=== PATIENT | female | born 1975 | race Caucasian/White ===

== ENCOUNTER 2018-09-17 20:41 | Emergency (ER) | payer BC ==
[2018-09-17 22:13] VITALS: RESP 18
--- NOTE | 2018-09-18 00:22 | ED PDOC ---
HPI: Abdomen Time Seen by Provider: 09/18/18 00:04 Chief Complaint (Nursing): Abdominal Pain Chief Complaint (Provider): abdominal pain History Per: Patient History/Exam Limitations: no limitations Onset/Duration Of Symptoms: Days, Waxing/Waning Current Symptoms Are (Timing): Still Present Location Of Pain/Discomfort: RLQ Additional Complaint(s): 43 y/o female presents for evaluation of intermittent right lower abdominal pain x weeks, worsening today. Denies fever, nausea/vomiting, cough, congestion, chest pain, shortness of breath, palpitations, urinary symptoms, vaginal bleeding/discharge Abnormal Vaginal Bleeding: No Last Menstral Period: 09/08/18 Past Medical History Reviewed: Historical Data, Nursing Documentation, Vital Signs Vital Signs: Last Vital Signs Temp 98.4 F 09/17/18 22:10 Pulse 72 09/17/18 22:10 Resp 18 09/17/18 22:10 BP 132/76 09/17/18 22:10 Pulse Ox 99 09/17/18 22:10 - Medical History PMH: No Chronic Diseases - Surgical History Surgical History: Tonsillectomy - Family History Family History: States: No Known Family Hx - Home Medications Home Medications: Ambulatory Orders Medication Instructions Recorded Cyclobenzaprine [Cyclobenzaprine 10 mg PO BID #14 tab 08/23/14 HCl] Ibuprofen [Motrin] 600 mg PO Q8 #30 tab 08/23/14 - Allergies Allergies/Adverse Reactions: Allergies Allergy/AdvReac Type Severity Reaction Status Date / Time No Known Allergies Allergy Unverified 08/23/14 10:41 Review of Systems ROS Statement: Except As Marked, All Systems Reviewed And Found Negative Genitourinary Female: Positive for: Pelvic Pain Physical Exam - Reviewed Nursing Documentation Reviewed: Yes Vital Signs Reviewed: Yes - Physical Exam Appears: Positive for: Well, Non-toxic, No Acute Distress Head Exam: Positive for: ATRAUMATIC, NORMAL INSPECTION, NORMOCEPHALIC Skin: Positive for: Normal Color Eye Exam: Positive for: Normal appearance ENT: Positive for: Normal ENT Inspection Cardiovascular/Chest: Positive for: Regular Rate, Rhythm Respiratory: Positive for: Normal Breath Sounds Gastrointestinal/Abdominal: Positive for: Bowel Sounds, Soft, Tenderness (epigastric and RLQ tenderness; negative McBurney's. negative Weiner's). Negative for: Distended, Guarding, Rebound Extremity: Positive for: Normal ROM Neurologic/Psych: Positive for: Alert, Oriented (x3) - Laboratory Results Result Diagrams: 09/18/18 00:30 09/18/18 00:30 - ECG O2 Sat by Pulse Oximetry: 99 - Progress ED Course And Treament: -upreg -udip -cbc -cmp -urinalsys -tv u/s -IV toradol Ultrasound of the pelvis, transvaginal. Indication: Right-sided pelvic pain. Technique: Transvaginal and transabdominal ultrasound images were obtained. Findings: Uterus is normal in size measuring 8.8x5.5x7 cm. Endometrium is normal in thickness measuring 7.3 mm. Multiple nabothian cysts of the cervix with the largest measuring 1.5 cm. Normal ovaries. No evidence of ovarian torsion. Impression: Multiple nabothian cysts of the cervix with the largest measuring 1.5 cm. Otherwise, unremarkable uterus and ovaries CT ordered for further evaluation of pain CT SCAN OF THE ABDOMEN AND PELVIS WITH CONTRAST. CLINICAL HISTORY: Right lower quadrant pain. TECHNIQUE: Multiple axial and coronal CT images were obtained through the abdomen and pelvis after administration of intravenous contrast material. COMMENTS: The liver is mildly enlarged with decreased attenuation without mass or defect. There is no intra or extrahepatic biliary ductal dilatation. The spleen is normal. The gallbladder is diffusely thickened containing multiple gallstones. The pancreas is of normal contour and attenuation characteristics. There is no evidence of adrenal mass. Both kidneys demonstrate prompt and equal nephrograms. The kidneys are normal in size, shape and configuration. There is no evidence of renal or ureteral mass. No renal or ureteral calculi are identified. There is no hydroureter or h ydronephrosis. No evidence for appendicitis. There is no bowel wall thickening. No evidence for small or large bowel obstruction. There is no evidence of abdominal ascites or lymphadenopathy. There is no evidence of intrinsic or extrinsic bladder mass. There is no pelvic ascites or lymphadenopathy. Changes of pelvic congestion syndrome. Uncomplicated colonic diverticulosis. Images of the lung bases show no evidence of pleural or parenchymal mass. There are no pleural effusions. The bony structures are free of lytic or blastic lesions. IMPRESSION: Cholelithiasis. Mild diffuse thickening of the gallbladder, sonographic evaluation is suggested. Uncomplicated colonic diverticulosis. Chronic changes of pelvic congestion syndrome. Normal appendix Ultrasound of the right upper quadrant. Indication: Right-sided pain. Technique: Real-time ultrasound images were obtained. Findings: Enlarged the liver measuring 18.9 cm. Hepatic steatosis. Diffuse thickening of the gallbladder measuring 3.3 mm. Multiple gallstones are noted. Nondilated common bile duct measuring 4 mm. Unremarkable pancreas is visualized. Unremarkable IVC. Unremarkable aorta. Unremarkable right kidney. Impression: Cholelithiasis. Mild diffuse thickening of the wall of the gallbladder. This is suspicious for developing acute inflammatory pathology of the gallbladder. Hepatic steatosis. Case discussed with Dr. Gibbs technical operations vice president on-call, will come evaluate patient in ED Disposition - Clinical Impression Clinical Impression: Abdominal pain in female - Disposition Disposition Time: 06:00 Condition: IMPROVED Patient Signed Over To: Andrea Connell Handoff Comments: pending surgical eval
[2018-09-18 01:06] LABS: BASO # 0.1 K/uL (0.0-0.2); BASO % 0.6 % (0.0-2.0); EOS # 0.2 K/uL (0.0-0.7); EOS % 2.2 % (0.0-4.0); HEMOGLOBIN 11.7 g/dL (12.0-16.0); LYMPH # 3.6 K/uL (1.0-4.3); LYMPH % 35.8 % (20.0-40.0); MEAN CORPUSCULAR HEMOGLOBIN 27.8 pg (27.0-31.0); MEAN CORPUSCULAR HGB CONC 33.1 g/dL (33.0-37.0); MEAN PLATELET VOLUME 8.5 fl (7.2-11.7); MONO # 0.4 K/uL (0.0-0.8); MONO % 4.4 % (0.0-10.0); NEUT # 5.8 K/uL (1.8-7.0); RBC 4.2 Mil/uL (3.80-5.20); RED CELL DISTRIBUTION WIDTH 13.7 % (11.5-14.5); WHITE BLOOD COUNT 10.2 K/uL (4.8-10.8)
[2018-09-18 01:08] LABS: SQUAMOUS EPITHIAL 1 /hpf (0-5); URINE BILIRUBIN NEGATIVE (NEGATIVE); URINE BLOOD NEGATIVE (NEGATIVE); URINE CLARITY CLEAR (Clear); URINE COLOR YELLOW (YELLOW); URINE GLUCOSE (UA) NEG (NEGATIVE); URINE LEUKOCYTE ESTERASE NEG Leu/uL (Negative); URINE PROTEIN NEGATIVE (NEGATIVE)
[2018-09-18 01:18] LABS: ALB/GLOB RATIO 1.1 (1.0-2.1); ALBUMIN 4.1 g/dL (3.5-5.0); ALT/SGPT 25 U/L (9-52); AST/SGOT 18 U/L (14-36); BLOOD UREA NITROGEN 13 mg/dl (7-17); CALCIUM 9.3 mg/dL (8.4-10.2); GFR NON-AFRICAN AMERICAN > 60
[2018-09-18] MEDS ORDERED: Iohexol 300 100 ML IJ ONE (02:53)
[2018-09-18] MEDS ORDERED: Sodium Chloride 0.9% 50 ML IV ONE (02:54)
[2018-09-18 03:43] LABS: LIPASE 65 U/L (23-300)
--- NOTE | 2018-09-18 05:58 | CP.PCM.CON ---
<SaiCali - Last Filed: 09/18/18 06:47> History of Present Illness - History of Present Illness History of Present Illness: 43F with no significant past medical history reports to [facility] ED with complaints of abdominal pain. Patient states she's been experience right sided abdominal pain for about a month. However, pain worsened during past 2 days so she decided to come to hospital. She denies exacerbation of abdominal pain with food intake. Reports she was seen by PMD about a week ago where she was prescribed Nexium. Patient states it relieved abdominal discomfort for short period of time. At time of examination she denied fever/chills, nausea/vomiting, diarrhea. PMHx:none PSHx: tonsillectomy Allergies:NKDA Soc Hx: Denies smoking, denies EtOH use, denies illicit drug use Review of Systems - Review of Systems Review of Systems: 10 pt ROS negative except as stated in HPI Past Patient History - Past Social History Smoking Status: Never Smoked - PSYCHIATRIC Hx Substance Use: No - SURGICAL HISTORY Hx Tonsillectomy: Yes - ANESTHESIA Hx Anesthesia: Yes Hx Anesthesia Reactions: No Meds Allergies/Adverse Reactions: Allergies Allergy/AdvReac Type Severity Reaction Status Date / Time No Known Allergies Allergy Unverified 09/18/18 06:10 Physical Exam - Constitutional Appears: No Acute Distress - Head Exam Head Exam: NORMAL INSPECTION, NORMOCEPHALIC - Eye Exam Eye Exam: EOMI, Normal appearance - ENT Exam ENT Exam: Mucous Membranes Moist - Respiratory Exam Respiratory Exam: NORMAL BREATHING PATTERN - Cardiovascular Exam Cardiovascular Exam: +S1, +S2 - GI/Abdominal Exam GI & Abdominal Exam: Soft, Tenderness. absent: Distended, Firm, Guarding, Rebound, Rigid Additional comments: RUQ and RLQ tenderness -mild, to deep palpation - Neurological Exam Neurological exam: Alert, Oriented x3 - Psychiatric Exam Psychiatric exam: Normal Mood - Skin Skin Exam: Dry, Intact, Warm Results - Vital Signs Recent Vital Signs: Last Vital Signs Temp 98.4 F 09/17/18 22:10 Pulse 72 09/17/18 22:10 Resp 18 09/17/18 22:10 BP 132/76 09/17/18 22:10 Pulse Ox 99 09/18/18 05:56 - Labs Result Diagrams: 09/18/18 00:30 09/18/18 00:30 Labs: Laboratory Results - last 24 hr 09/18/18 09/18/18 09/18/18 00:30 00:30 00:30 WBC 10.2 RBC 4.20 Hgb 11.7 L Hct 35.3 MCV 84.0 MCH 27.8 MCHC 33.1 RDW 13.7 Plt Count 334 MPV 8.5 Neut % (Auto) 57.0 Lymph % (Auto) 35.8 [place] % (Auto) 4.4 Eos % (Auto) 2.2 Baso % (Auto) 0.6 Neut # (Auto) 5.8 Lymph # (Auto) 3.6 [place] # (Auto) 0.4 Eos # (Auto) 0.2 Baso # (Auto) 0.1 Sodium 135 Potassium 3.9 Chloride 98 Carbon Dioxide 27 Anion Gap 14 BUN 13 Creatinine 0.6 L Est GFR ( Amer) > 60 Est GFR (Non-Af Amer) > 60 Random Glucose 98 Calcium 9.3 Total Bilirubin 0.3 AST 18 ALT 25 Alkaline Phosphatase 95 Total Protein 7.9 Albumin 4.1 Globulin 3.8 Albumin/Globulin Ratio 1.1 Lipase 65 Urine Color Yellow Urine Clarity Clear Urine pH 5.0 Ur Specific [place] 1.026 Urine Protein Negative Urine Glucose (UA) Neg Urine Ketones Negative Urine Blood Negative Urine Nitrate Negative Urine Bilirubin Negative Urine Urobilinogen 2.0 H Ur Leukocyte Esterase Neg Urine RBC (Auto) 1 Urine Microscopic WBC 2 Ur Squamous Epith Cells 1 Assessment & Plan - Assessment and Plan (Free Text) Assessment: 43F with abdominal pain with U/S evidence of large gallstones, no CBD dilation Plan: -Patient may follow up as outpatient -Call office to schedule appointment for Friday -Will plan for elective laparoscopic cholecystectomy -Should you experience fever/chills or abdominal pain not improve or worsen return to ER -D/w Dr. Eddie Butler PGY3 <Henrry Morgan - Last Filed: 09/18/18 11:06> Results - Vital Signs Recent Vital Signs: Last Vital Signs Temp 98.1 F 09/18/18 06:24 Pulse 69 09/18/18 06:24 Resp 18 09/18/18 06:24 BP 140/84 09/18/18 06:24 Pulse Ox 98 09/18/18 06:24 - Labs Result Diagrams: 09/18/18 00:30 09/18/18 00:30 Labs: Laboratory Results - last 24 hr 09/18/18 09/18/18 09/18/18 00:30 00:30 00:30 WBC 10.2 RBC 4.20 Hgb 11.7 L Hct 35.3 MCV 84.0 MCH 27.8 MCHC 33.1 RDW 13.7 Plt Count 334 MPV 8.5 Neut % (Auto) 57.0 Lymph % (Auto) 35.8 [place] % (Auto) 4.4 Eos % (Auto) 2.2 Baso % (Auto) 0.6 Neut # (Auto) 5.8 Lymph # (Auto) 3.6 [place] # (Auto) 0.4 Eos # (Auto) 0.2 Baso # (Auto) 0.1 Sodium 135 Potassium 3.9 Chloride 98 Carbon Dioxide 27 Anion Gap 14 BUN 13 Creatinine 0.6 L Est GFR ( Amer) > 60 Est GFR (Non-Af Amer) > 60 Random Glucose 98 Calcium 9.3 Total Bilirubin 0.3 AST 18 ALT 25 Alkaline Phosphatase 95 Total Protein 7.9 Albumin 4.1 Globulin 3.8 Albumin/Globulin Ratio 1.1 Lipase 65 Urine Color Yellow Urine Clarity Clear Urine pH 5.0 Ur Specific [place] 1.026 Urine Protein Negative Urine Glucose (UA) Neg Urine Ketones Negative Urine Blood Negative Urine Nitrate Negative Urine Bilirubin Negative Urine Urobilinogen 2.0 H Ur Leukocyte Esterase Neg Urine RBC (Auto) 1 Urine Microscopic WBC 2 Ur Squamous Epith Cells 1 Assessment & Plan - Assessment and Plan (Free Text) Plan: agree with resident pt should follow up for elective cholecystectomy
[2018-09-18 06:24] VITALS: BP 140/84; PULSE 69; TEMP 98.1; O2SAT 98
--- NOTE | 2018-09-18 10:28 | US ---
Date of service: 09/18/2018 HISTORY: gallstones COMPARISON: None. TECHNIQUE: Sonographic evaluation of the right upper quadrant of the abdomen. FINDINGS: LIVER: Measures 18.9 cm in length. Diffusely increased echogenicity consistent with fatty infiltration. Mild hepatomegaly. Smooth contour. No mass. No biliary ductal dilatation. GALLBLADDER: Cholelithiasis. No mural thickening. No pericholecystic fluid. Negative sonographic Weiner sign. COMMON BILE DUCT: Measures 4 mm. No stones. No dilatation. PANCREAS: Unremarkable as visualized. No mass. No ductal dilatation. RIGHT KIDNEY: Measures 10.7 cm in length. Normal echogenicity. No calculus, mass, or hydronephrosis. AORTA: No aneurysmal dilatation. IVC: Unremarkable. OTHER FINDINGS: None . IMPRESSION: Mild hepatomegaly with fatty infiltration. Cholelithiasis without evidence of cholecystitis. The preliminary findings for this examination were reported by [facility] at time. There is discordance of this report with the preliminary findings. Upon review there is not felt to be any mural thickening of the gallbladder at this time.
--- NOTE | 2018-09-18 12:24 | US ---
Date of service: 09/18/2018 HISTORY: Right-sided pelvic pain. LMP 09/11/2018. Regular cycles COMPARISON: None available. TECHNIQUE: Transvaginal only. Real -time technique with 2D, duplex and color Doppler FINDINGS: UTERUS: Measures 5.5 x 7 x 8.8 cm. Normal in size and appearance. No fibroid or other mass lesion seen. ENDOMETRIUM: Measures 7.3 mm in diameter. No ultrasound findings to suggest gestational sac, fluid, debris, mass or polyp or other pathologic process within the endometrium. CERVIX: No cervical abnormality identified.Incidental finding: Nabothian cysts the largest measures 1.5 cm. Closed cervix 3.56 cm. RIGHT OVARY: Measures 1.8 x 1.8 x 2.8 cm. No solid mass. Normal flow. LEFT OVARY: Measures 1.3 x 1.6 x 2.3 cm. No solid mass. Normal flow. FREE FLUID: No significant free fluid noted. OTHER FINDINGS: None. IMPRESSION: No significant or acute findings to account for/ related to the clinical presentation. Concordant findings (preliminary report) provided by [facility].
--- NOTE | 2018-09-18 15:49 | CT ---
Date of service: 09/18/2018 PROCEDURE: CT Abdomen and Pelvis with contrast HISTORY: RLQ pain COMPARISON: None. TECHNIQUE: Contrast dose: Radiation dose: Total exam DLP = 824.23 mGy-cm. This CT exam was performed using one or more of the following dose reduction techniques: Automated exposure control, adjustment of the mA and/or kV according to patient size, and/or use of iterative reconstruction technique. FINDINGS: LOWER THORAX: Unremarkable. LIVER: Mild hepatomegaly. The liver measures approximately 19.4 cm craniocaudal. GALLBLADDER AND BILE DUCTS: Cholelithiasis. No mural thickening or pericholecystic fluid. PANCREAS: Unremarkable. No gross lesion or ductal dilatation. SPLEEN: Unremarkable. ADRENALS: Unremarkable. No mass. KIDNEYS AND URETERS: Unremarkable. No hydronephrosis. No solid mass. VASCULATURE: Unremarkable. No aortic aneurysm. No aortic atherosclerotic calcification or mural plaque present. BOWEL: Sigmoid diverticulosis. No evidence of diverticulitis. No bowel obstruction. No other abnormal bowel loops. APPENDIX: Normal appendix. PERITONEUM: Unremarkable. No free fluid. No free air. LYMPH NODES: Unremarkable. No enlarged lymph nodes. BLADDER: Nondistended REPRODUCTIVE: Normal uterus BONES: No acute fracture. OTHER FINDINGS: None. IMPRESSION: Cholelithiasis without evidence of cholecystitis. Mild hepatomegaly. Sigmoid diverticulosis without evidence of diverticulitis. No additional abnormality. The preliminary findings for this examination were reported by [facility] at 3:27 a.m. on 09/18/2018. There is concurrence of this report with the preliminary findings.
== END 2018-09-18 06:39 | disposition home or self-care (01) ==
LOC: H.ER 20:41
DX: K80.20 Calculus of gallbladder without cholecystitis without obstruction (principal)
CPT/HCPCS: 74177; 76705; 76830; 80053; 81003; 81025; 83690; 85025; 87086; 96374; 99285; J1885; Q9967

== ENCOUNTER 2018-10-11 06:33 | Inpatient (IN) | payer BC ==
[2018-10-11] MEDS ORDERED: Morphine 4 MG/ML VIAL IVP STA (06:54)
[2018-10-11] MEDS ORDERED: Sodium Chloride 0.9% 1,000 ML IV STA (06:54)
--- NOTE | 2018-10-11 07:02 | ED PDOC ---
HPI: Abdomen Time Seen by Provider: 10/11/18 06:49 Chief Complaint (Nursing): Abdominal Pain Chief Complaint (Provider): Abdominal Pain History Per: Patient History/Exam Limitations: no limitations Onset/Duration Of Symptoms: Hrs Current Symptoms Are (Timing): Still Present Location Of Pain/Discomfort: RUQ, Epigastric Associated Symptoms: Vomiting Additional Complaint(s): 43 y/o female with a PMHx of gastritis and recently diagnosed gallstones presents to the ED for evaluation of abdominal pain, onset four hours prior to arrival. Patient reports of waking up this morning at 3 AM with severe epigastric and RUQ pain associated with 4 episodes of bilious vomiting. Patient notes of having eaten greasy Sinhala food last night. Patient states she has not had a bowel movement since onset of pain. Otherwise, patient additionally denies fevers. PMD: [facility] Past Medical History Reviewed: Historical Data, Nursing Documentation, Vital Signs Vital Signs: Last Vital Signs Temp 98.3 F 10/11/18 06:34 Pulse 71 10/11/18 06:34 Resp 16 10/11/18 06:34 BP 132/81 10/11/18 06:34 Pulse Ox 98 10/11/18 06:34 - Medical History PMH: Gastritis, Gall Bladder Disease - Surgical History Surgical History: Tonsillectomy - Family History Family History: States: Unknown Family Hx - Home Medications Home Medications: Ambulatory Orders Medication Instructions Recorded No Known Home Med 09/18/18 - Allergies Allergies/Adverse Reactions: Allergies Allergy/AdvReac Type Severity Reaction Status Date / Time No Known Allergies Allergy Unverified 09/18/18 06:10 Review of Systems ROS Statement: Except As Marked, All Systems Reviewed And Found Negative Gastrointestinal: Positive for: Vomiting, Abdominal Pain Physical Exam - Reviewed Nursing Documentation Reviewed: Yes Vital Signs Reviewed: Yes - Physical Exam Appears: Positive for: Uncomfortable (patient is actively vomiting) Head Exam: Positive for: ATRAUMATIC, NORMOCEPHALIC Skin: Positive for: Normal Color, Warm, Dry Eye Exam: Positive for: Normal appearance, EOMI, PERRL Neck: Positive for: Normal, Painless ROM, Supple Cardiovascular/Chest: Positive for: Regular Rate, Rhythm. Negative for: Murmur Respiratory: Positive for: Normal Breath Sounds. Negative for: Respiratory Distress Gastrointestinal/Abdominal: Positive for: Tenderness (Epigastric and RUQ tenderness) Back: Positive for: Normal Inspection. Negative for: L CVA Tenderness, R CVA Tenderness, Vertebral Tenderness Extremity: Positive for: Normal ROM. Negative for: Deformity Neurological/Psych: Positive for: Awake, Alert, Oriented (x3) - Laboratory Results Result Diagrams: 10/11/18 06:51 10/11/18 06:51 - ECG O2 Sat by Pulse Oximetry: 98 (RA) Pulse Ox Interpretation: Normal Medical Decision Making Medical Decision Making: Time: 0654 A/P: 43 y/o female with a PMHx of Gastritis and recently diagnosed gallstones presenting with biliary colic -- Concern for flare up of gall bladder disease vs. cholecystitis vs. less likely gastritis. -- CMP -- Lipase -- ED Urine -- ED Urine Dipstick -- CBC with Differentials -- Morphine 4 mg IVP -- Sodium Chloride IV 1000 mls/hr -- Zofran Inj 4 mg IVP -- Urinalysis -- US Gall Bladder Time: 0700 -- Patient endorsed to Dr. Paulino, pending labs, US, re-evaluation and final ER disposition. Scribe Attestation: Documented by Shira Andrew, acting as a scribe for Arnaldo Whyte MD. Provider Scribe Attestation: All medical record entries made by the Scribe were at my direction and personally dictated by me. I have reviewed the chart and agree that the record accurately reflects my personal performance of the history, physical exam, medical decision making, and the department course for this patient. I have also personally directed, reviewed, and agree with the discharge instructions and disposition. Disposition - Clinical Impression Clinical Impression: Abdominal pain, Cholelithiasis - Patient ED Disposition Is Patient to be Admitted: Transfer of Care - Disposition Disposition: Transfer of Care Disposition Time: 07:00 Condition: FAIR Patient Signed Over To: Dewayne Paulino Handoff Comments: Pending labs, US, re-evaluation and final ER dispostion.
[2018-10-11] MEDS ORDERED: Morphine 4 MG/ML VIAL ONE (07:03)
[2018-10-11 07:06] LABS: BASO # 0.1 K/uL (0.0-0.2); BASO % 0.9 % (0.0-2.0); EOS # 0.1 K/uL (0.0-0.7); EOS % 1.7 % (0.0-4.0); HEMOGLOBIN 12.1 g/dL (12.0-16.0); LYMPH # 1.7 K/uL (1.0-4.3); LYMPH % 19.2 % (20.0-40.0); MEAN CELL VOLUME 83.5 fl (81.0-99.0); MEAN CORPUSCULAR HGB CONC 33.6 g/dL (33.0-37.0); MEAN PLATELET VOLUME 8.4 fl (7.2-11.7); MONO # 0.3 K/uL (0.0-0.8); MONO % 3.9 % (0.0-10.0); NEUT # 6.6 K/uL (1.8-7.0); NEUT % 74.3 % (50.0-75.0); RBC 4.31 Mil/uL (3.80-5.20); WHITE BLOOD COUNT 8.8 K/uL (4.8-10.8)
--- NOTE | 2018-10-11 07:11 | ED PDOC ---
- Laboratory Results Result Diagrams: 10/11/18 06:51 10/11/18 06:51 - ECG O2 Sat by Pulse Oximetry: 98 (RA) Pulse Ox Interpretation: Normal Medical Decision Making Medical Decision Making: Time: 0700 -- Patient endorsed to me by Dr. Whyte, pending labs, US, re-evaluation and final ER disposition. Time: 1220 US RESULTS COMPARISON: TECHNIQUE: FINDINGS: Hepatomegaly with liver measuring 21 centimeters. Increased echotexture compatible with fatty infiltration. The gallbladder demonstrates no evidence of significant wall thickening gallstones are present with minimal pericholecystic fluid. The common bile duct measures 4 millimeters. The right kidney is unremarkable. The aorta and IVC are intact. IMPRESSION: Gallstones with no significant wall thickening. Trace pericholecystic fluid. Fatty infiltration of the liver. Time: 1303 -- Spoke to resident hall director, Dr. Donahue who will evaluate the patient in the ED. Consult for Dr. Blane Pierson to be placed. 1330 As per resident care manager rn Dr Okeefe recommends admission for cholelithiasis. Scribe Attestation: Documented by Shira Andrew, acting as a scribe for Dewayne Paulino MD. Provider Scribe Attestation: All medical record entries made by the Scribe were at my direction and personally dictated by me. I have reviewed the chart and agree that the record accurately reflects my personal performance of the history, physical exam, medical decision making, and the department course for this patient. I have also personally directed, reviewed, and agree with the discharge instructions and disposition. Disposition Discussed With DrGeovanna: Boni Hough Doctor Will See Patient In The: Hospital Counseled Patient/Family Regarding: Studies Performed, Diagnosis - Clinical Impression Clinical Impression: Abdominal pain, Cholelithiasis - POA Present On Arrival: None - Disposition Disposition: Admitted as In-Patient Disposition Time: 13:20 Condition: FAIR
[2018-10-11 07:18] LABS: ALB/GLOB RATIO 1.1 (1.0-2.1); ALBUMIN 4.4 g/dL (3.5-5.0); ALT/SGPT 23 U/L (9-52); AST/SGOT 21 U/L (14-36); BLOOD UREA NITROGEN 11 mg/dl (7-17); CALCIUM 9.5 mg/dL (8.4-10.2); GFR NON-AFRICAN AMERICAN > 60; LIPASE 49 U/L (23-300)
--- NOTE | 2018-10-11 12:23 | US ---
Date of service: 10/11/2018 PROCEDURE: HISTORY: hx of gallstones, RUQ/epig pain COMPARISON: TECHNIQUE: FINDINGS: Hepatomegaly with liver measuring 21 centimeters. Increased echotexture compatible with fatty infiltration. The gallbladder demonstrates no evidence of significant wall thickening gallstones are present with minimal pericholecystic fluid. The common bile duct measures 4 millimeters. The right kidney is unremarkable. The aorta and IVC are intact. IMPRESSION: Gallstones with no significant wall thickening. Trace pericholecystic fluid. Fatty infiltration of the liver.
--- NOTE | 2018-10-11 13:11 | CP.PCM.CON ---
History of Present Illness - History of Present Illness History of Present Illness: General surgery consult note for Dr. Vadim Donahue, PGY-2 Pt seen/examined at bedside 43F w/PMH sig for cholelithiasis consulted for RUQ abdominal pain x 1 day. Pain is severe, radiates to epigastric area and back, minimally alleviated by pain medication. Pt reports eating pork fried rice prior to onset of pain. Pt reports she is scheduled for cholecystectomy at [facility] on 10/12 for elective procedure. Admits to associated nausea, emesis x 4 (nb,nb), diaphoresis when experiencing pain, pain with deep inspiration, one episode of diarrhea on day prior to evaluation. Denies fevers, chills, changes in urinary habits, constipation, hematuria, dysuria, other compliants. In ED, U/S with findings of trace pericholecystic fluid & cholelithiasis, negative for GB wall thickening. CBD 4mm. No leukocytosis, T bili WNL (0.3) PMH: Cholelithiasis PSH: Denies All: NKDA SH: Denies ETOH, tobacco or illicit drug use Review of Systems - Review of Systems All systems: reviewed and no additional remarkable complaints except - Constitutional Constitutional: absent: Chills, Fever - EENT Ears: absent: Dizziness Nose/Mouth/Throat: absent: Sore Throat - Cardiovascular Cardiovascular: absent: Chest Pain - Gastrointestinal Gastrointestinal: Abdominal Pain, Diarrhea, Nausea, Vomiting. absent: Constipation, Hematemesis, Melena, Temesmus - Genitourinary Genitourinary: absent: Change in Urinary Stream, Hematuria - Musculoskeletal Musculoskeletal: Back Pain (radiates from front) - Integumentary Integumentary: absent: Rash Past Patient History - Past Social History Smoking Status: Never Smoked - GASTROINTESTINAL Hx Gall Bladder Disease: Yes Hx Gastritis: Yes - PSYCHIATRIC Hx Substance Use: No - SURGICAL HISTORY Hx Tonsillectomy: Yes - ANESTHESIA Hx Anesthesia: Yes Hx Anesthesia Reactions: No Hx Malignant Hyperthermia: No Meds Allergies/Adverse Reactions: Allergies Allergy/AdvReac Type Severity Reaction Status Date / Time No Known Allergies Allergy Unverified 09/18/18 06:10 Physical Exam - Constitutional Appears: Non-toxic, No Acute Distress - Head Exam Head Exam: ATRAUMATIC, NORMAL INSPECTION, NORMOCEPHALIC - Eye Exam Eye Exam: EOMI, Normal appearance - ENT Exam ENT Exam: Mucous Membranes Moist, Normal Exam - Neck Exam Neck exam: Positive for: Full Rom, Normal Inspection - Respiratory Exam Respiratory Exam: NORMAL BREATHING PATTERN. absent: Accessory Muscle Use - Cardiovascular Exam Cardiovascular Exam: REGULAR RHYTHM - GI/Abdominal Exam GI & Abdominal Exam: Normal Bowel Sounds, Soft, Tenderness (RUQ, mild). absent: Distended (obese), Firm, Guarding, Hernia, Rebound, Rigid - Extremities Exam Extremities exam: Positive for: normal inspection - Neurological Exam Neurological exam: Alert, CN II-XII Intact, Oriented x3 - Psychiatric Exam Psychiatric exam: Normal Affect, Normal Mood - Skin Skin Exam: Dry, Intact, Normal Color, Warm Results - Vital Signs Recent Vital Signs: Last Vital Signs Temp 98.5 F 10/11/18 13:06 Pulse 70 10/11/18 13:06 Resp 20 10/11/18 13:06 BP 136/78 10/11/18 13:06 Pulse Ox 97 10/11/18 13:06 - Labs Result Diagrams: 10/11/18 06:51 10/11/18 06:51 Labs: Laboratory Results - last 24 hr 10/11/18 10/11/18 06:51 06:51 WBC 8.8 RBC 4.31 Hgb 12.1 Hct 36.0 MCV 83.5 MCH 28.0 MCHC 33.6 RDW 14.0 Plt Count 327 MPV 8.4 Neut % (Auto) 74.3 Lymph % (Auto) 19.2 L [place] % (Auto) 3.9 Eos % (Auto) 1.7 Baso % (Auto) 0.9 Neut # (Auto) 6.6 Lymph # (Auto) 1.7 [place] # (Auto) 0.3 Eos # (Auto) 0.1 Baso # (Auto) 0.1 Sodium 141 Potassium 4.1 Chloride 103 Carbon Dioxide 26 Anion Gap 16 BUN 11 Creatinine 0.6 L Est GFR ( Amer) > 60 Est GFR (Non-Af Amer) > 60 Random Glucose 123 H Calcium 9.5 Total Bilirubin 0.3 AST 21 ALT 23 Alkaline Phosphatase 103 Total Protein 8.3 H Albumin 4.4 Globulin 4.0 H Albumin/Globulin Ratio 1.1 Lipase 49 Assessment & Plan - Assessment and Plan (Free Text) Assessment: 43F w/symptomatic cholelithiasis Plan: Admit to medical service NPO pMN IVF Pain control Activity as tolerated Plan for OR 10/12 Further care as per primary team DW Dr. Maldonado Donahue, PGY-2 - Date & Time Date: 10/11/18 Time: 13:11
[2018-10-11] MEDS: Lactated Ringer's 1,000 ML IV SCH ×2 (13:48→20:10)
--- NOTE | 2018-10-11 19:56 | CARD ---
APPROVED REPORT Date of service: 10/11/2018 EKG Measurement Heart [id number] <Conclusion> Normal sinus rhythm Normal ECG
[2018-10-12] MEDS: Lactated Ringer's 1,000 ML IV SCH ×4 (02:50→21:35)
[2018-10-12 06:34] LABS: BASO % 0.5 % (0.0-2.0); EOS # 0.2 K/uL (0.0-0.7); EOS % 2.2 % (0.0-4.0); HEMOGLOBIN 10.9 g/dL (12.0-16.0); LYMPH # 2.2 K/uL (1.0-4.3); LYMPH % 23.5 % (20.0-40.0); MEAN CELL VOLUME 84.5 fl (81.0-99.0); MEAN CORPUSCULAR HGB CONC 33.2 g/dL (33.0-37.0); MEAN PLATELET VOLUME 8.4 fl (7.2-11.7); MONO # 0.5 K/uL (0.0-0.8); MONO % 5.5 % (0.0-10.0); NEUT # 6.3 K/uL (1.8-7.0); NEUT % 68.3 % (50.0-75.0); RBC 3.89 Mil/uL (3.80-5.20); RED CELL DISTRIBUTION WIDTH 14.1 % (11.5-14.5); WHITE BLOOD COUNT 9.2 K/uL (4.8-10.8)
[2018-10-12 06:41] LABS: INR 1.1; PROTHROMBIN TIME 12.5 Seconds (9.8-13.1)
[2018-10-12 06:45] LABS: PARTIAL THROMBOPLASTIN TIME 30.6 Seconds (25.6-37.1)
[2018-10-12 06:59] LABS: ALB/GLOB RATIO 1.1 (1.0-2.1); ALBUMIN 3.6 g/dL (3.5-5.0); ALT/SGPT 16 U/L (9-52); AST/SGOT 15 U/L (14-36); BLOOD UREA NITROGEN 8 mg/dl (7-17); CALCIUM 9.2 mg/dL (8.4-10.2); GFR NON-AFRICAN AMERICAN > 60
--- NOTE | 2018-10-12 10:21 | CP.PCM.HP ---
History of Present Illness - History of Present Illness History of Present Illness: pt admitted for symptomatic cholelithiasis. was for lap elva at [facility] today. no f/c, n/v/d. pain controlled at present. no med/surg hx. no julia emdds. no hx breathing/bleeding/anesthesia problems. bw and imaging reviewed. surgical consult noted Present on Admission - Present on Admission Any Indicators Present on Admission: No Review of Systems - Gastrointestinal Gastrointestinal: As Per HPI, Abdominal Pain Past Patient History - Past Medical History & Family History Past Medical History?: Yes - Past Social History Smoking Status: Never Smoked - CARDIAC Hx Cardiac Disorders: No - PULMONARY Hx Respiratory Disorders: No - NEUROLOGICAL Hx Neurological Disorder: No - HEENT Hx HEENT Problems: No - RENAL Hx Chronic Kidney Disease: No - ENDOCRINE/METABOLIC Hx Endocrine Disorders: No - HEMATOLOGICAL/ONCOLOGICAL Hx Blood Disorders: No - INTEGUMENTARY Hx Dermatological Problems: No - MUSCULOSKELETAL/RHEUMATOLOGICAL Hx Musculoskeletal Disorders: No Hx Falls: No - GASTROINTESTINAL Hx Gall Bladder Disease: Yes Hx Gastritis: Yes - GENITOURINARY/GYNECOLOGICAL Hx Genitourinary Disorders: No - PSYCHIATRIC Hx Psychophysiologic Disorder: No Hx Substance Use: No - SURGICAL HISTORY Hx Tonsillectomy: Yes - ANESTHESIA Hx Anesthesia: Yes Hx Anesthesia Reactions: No Meds Allergies/Adverse Reactions: Allergies Allergy/AdvReac Type Severity Reaction Status Date / Time No Known Allergies Allergy Unverified 09/18/18 06:10 Physical Exam - Constitutional Appears: Well, Non-toxic, No Acute Distress - Head Exam Head Exam: ATRAUMATIC, NORMAL INSPECTION, NORMOCEPHALIC - Eye Exam Eye Exam: EOMI, Normal appearance, PERRL Pupil Exam: NORMAL ACCOMODATION, PERRL - ENT Exam ENT Exam: Mucous Membranes Moist, Normal Exam - Neck Exam Neck exam: Positive for: Normal Inspection - Respiratory Exam Respiratory Exam: Clear to Auscultation Bilateral, NORMAL BREATHING PATTERN - Cardiovascular Exam Cardiovascular Exam: REGULAR RHYTHM, RRR, +S1, +S2 - GI/Abdominal Exam GI & Abdominal Exam: Normal Bowel Sounds, Soft. absent: Tenderness - Extremities Exam Extremities exam: Positive for: full ROM, normal capillary refill, normal inspection, pedal pulses present - Back Exam Back exam: FULL ROM, NORMAL INSPECTION - Neurological Exam Neurological exam: Alert, CN II-XII Intact, Normal Gait, Oriented x3, Reflexes Normal - Psychiatric Exam Psychiatric exam: Normal Affect, Normal Mood - Skin Skin Exam: Dry, Intact, Normal Color, Warm Results - Vital Signs Recent Vital Signs: Last Vital Signs Temp 97.5 F L 10/12/18 07:56 Pulse 66 10/12/18 07:56 Resp 20 10/12/18 07:56 BP 124/80 10/12/18 07:56 Pulse Ox 96 10/12/18 07:56 - Labs Result Diagrams: 10/12/18 06:00 10/12/18 06:00 Labs: Laboratory Results - last 24 hr 10/12/18 10/12/18 10/12/18 06:00 06:00 06:00 WBC 9.2 RBC 3.89 Hgb 10.9 L Hct 32.8 L MCV 84.5 MCH 28.0 MCHC 33.2 RDW 14.1 Plt Count 299 MPV 8.4 Neut % (Auto) 68.3 Lymph % (Auto) 23.5 [place] % (Auto) 5.5 Eos % (Auto) 2.2 Baso % (Auto) 0.5 Neut # (Auto) 6.3 Lymph # (Auto) 2.2 [place] # (Auto) 0.5 Eos # (Auto) 0.2 Baso # (Auto) 0.0 PT 12.5 INR 1.1 APTT 30.6 Sodium 140 Potassium 3.8 Chloride 106 Carbon Dioxide 28 Anion Gap 10 BUN 8 Creatinine 0.6 L Est GFR ( Amer) > 60 Est GFR (Non-Af Amer) > 60 Random Glucose 103 Calcium 9.2 Total Bilirubin 0.5 AST 15 ALT 16 Alkaline Phosphatase 84 Total Protein 6.9 Albumin 3.6 Globulin 3.3 Albumin/Globulin Ratio 1.1 Blood Type Blood Type Confirm Antibody Screen BBK History Checked 10/12/18 10/12/18 06:00 07:50 WBC RBC Hgb Hct MCV MCH MCHC RDW Plt Count MPV Neut % (Auto) Lymph % (Auto) [place] % (Auto) Eos % (Auto) Baso % (Auto) Neut # (Auto) Lymph # (Auto) [place] # (Auto) Eos # (Auto) Baso # (Auto) PT INR APTT Sodium Potassium Chloride Carbon Dioxide Anion Gap BUN Creatinine Est GFR ( Amer) Est GFR (Non-Af Amer) Random Glucose Calcium Total Bilirubin AST ALT Alkaline Phosphatase Total Protein Albumin Globulin Albumin/Globulin Ratio Blood Type AB POSITIVE Blood Type Confirm AB POSITIVE Antibody Screen Negative BBK History Checked No verified bt Assessment & Plan (1) DVT prophylaxis Assessment and Plan: cd nad ae hose ambulation Status: Acute (2) Cholelithiasis Assessment and Plan: pain control npo ivf surgery Status: Acute Decision To Admit - Pt Status Changed To: Hospital Disposition Of: Inpatient - Admit Certification Admit to Inpatient:: After my assessment, the patient will require hospitalization for at least two midnights. This is because of the severity of symptoms shown, intensity of services needed, and/or the medical risk in this patient being treated as an outpatient. - . Bed Request Type: Med/Surg Admitting Physician: Charmaine Bettencourt
[2018-10-12] MEDS ORDERED: Propofol 10 mg/ml Inj (20 ML) ONE (11:57)
[2018-10-12] MEDS ORDERED: Rocuronium 10 mg/ml (5 ml) ONE (11:57)
[2018-10-12] MEDS ORDERED: Dexamethasone 4 mg/1 ml ONE (11:58)
[2018-10-12] MEDS ORDERED: Bupivacaine HCl 0.5% PF (30 ml) Inj ONE (12:17)
[2018-10-12] MEDS ORDERED: Lactated Ringer's 1,000 ML IV ONE (12:20)
[2018-10-12] MEDS ORDERED: Neostigmine 1:1000 (1 mg/ml) Inj ONE (12:57)
[2018-10-12] MEDS ORDERED: HYDROmorphone 0.5 mg/0.5 ml ISec IVP PRN (13:34)
--- NOTE | 2018-10-12 13:35 | PCM.SURG1 ---
Surgeon's Initial Post Op Note - Surgeon's Notes Surgeon: Dr. Okeefe Education Site Manager: Dr. Phil Beverly Type of Anesthesia: General Endo Anesthesia Administered By: Dr. Kathy Contreras Pre-Operative Diagnosis: Symptomatic Cholelithiasis Operative Findings: See operative dictation Post-Operative Diagnosis: Acute Cholecystitis Operation Performed: Laparoscopic Cholecystectomy Specimen/Specimens Removed: Gallbladder Estimated Blood Loss: EBL {In ML}: 20 Blood Products Given: N/A Drains Used: No Drains Post-Op Condition: Good Date of Surgery/Procedure: 10/12/18 Time of Surgery/Procedure: 13:36
[2018-10-12] MEDS ORDERED: Oxycodone/Acetaminophen 5/325 mg Tab PO PRN (14:30)
[2018-10-13] MEDS: Lactated Ringer's 1,000 ML IV SCH ×2 (05:03→05:04)
[2018-10-13 06:40] LABS: BASO % 0.2 % (0.0-2.0); EOS % 0.1 % (0.0-4.0); HEMOGLOBIN 10.2 g/dL (12.0-16.0); LYMPH # 1.6 K/uL (1.0-4.3); LYMPH % 13.6 % (20.0-40.0); MEAN CELL VOLUME 84.8 fl (81.0-99.0); MEAN CORPUSCULAR HEMOGLOBIN 27.4 pg (27.0-31.0); MEAN CORPUSCULAR HGB CONC 32.3 g/dL (33.0-37.0); MEAN PLATELET VOLUME 8.7 fl (7.2-11.7); MONO # 0.6 K/uL (0.0-0.8); MONO % 4.6 % (0.0-10.0); NEUT # 9.9 K/uL (1.8-7.0); NEUT % 81.5 % (50.0-75.0); RBC 3.73 Mil/uL (3.80-5.20); RED CELL DISTRIBUTION WIDTH 14.5 % (11.5-14.5); WHITE BLOOD COUNT 12.1 K/uL (4.8-10.8)
[2018-10-13 06:58] LABS: ALB/GLOB RATIO 1.1 (1.0-2.1); ALBUMIN 3.5 g/dL (3.5-5.0); ALT/SGPT 29 U/L (9-52); AST/SGOT 19 U/L (14-36); BLOOD UREA NITROGEN 10 mg/dl (7-17); CALCIUM 9.5 mg/dL (8.4-10.2); GFR NON-AFRICAN AMERICAN > 60
--- NOTE | 2018-10-13 07:32 | CP.PCM.PN ---
<Renata Sanchez - Last Filed: 10/13/18 07:29> Subjective - Date & Time of Evaluation Date of Evaluation: 10/13/18 Time of Evaluation: 07:30 - Subjective Subjective: General surgery consult note for Dr. Okeefe 43F seen and evaluated at bed POD1 s/p Laparoscopic cholecystectomy. Patient reports having flatus, states she ate, and denies nausea or vomiting. Patient complains of minimal pain to incision site. Patient reports walking. Objective - Vital Signs/Intake and Output Vital Signs (last 24 hours): Temp Pulse Resp BP Pulse Ox 98.5 F 72 19 114/70 93 L 10/13/18 00:36 10/13/18 00:36 10/13/18 00:36 10/13/18 00:36 10/13/18 00:36 - Medications Medications: Current Medications Hydromorphone HCl (Dilaudid) 0.5 mg IVP Q5M PRN PRN Reason: Pain, moderate (4-7) Last Admin: 10/12/18 14:10 Dose: 0.5 mg Lactated Ringer's (Lactated Ringer's) 1,000 mls @ 150 mls/hr IV .Q6H40M BERNARDO Last Admin: 10/13/18 05:04 Dose: 150 mls/hr Meperidine HCl (Demerol) 12.5 mg IVP Q5M PRN PRN Reason: Shivering/Rigor Ondansetron HCl (Zofran Inj) 4 mg IVP Q6 PRN PRN Reason: Nausea/Vomiting Oxycodone/Acetaminophen (Percocet 5/325 Mg Tab) 1 tab PO Q4 PRN PRN Reason: Pain, moderate (4-7) Stop: 10/15/18 14:31 - Labs Labs: 10/13/18 06:15 10/13/18 06:15 PT 12.5 Seconds (9.8-13.1) 10/12/18 06:00 INR 1.1 10/12/18 06:00 APTT 30.6 Seconds (25.6-37.1) 10/12/18 06:00 - Constitutional Appears: Well, Non-toxic, No Acute Distress - Head Exam Head Exam: ATRAUMATIC, NORMOCEPHALIC - ENT Exam ENT Exam: Mucous Membranes Moist - Respiratory Exam Respiratory Exam: Clear to Ausculation Bilateral. absent: Accessory Muscle Use, Respiratory Distress - Cardiovascular Exam Cardiovascular Exam: REGULAR RHYTHM, +S1, +S2 - GI/Abdominal Exam GI & Abdominal Exam: Soft, Tenderness, Normal Bowel Sounds. absent: Distended, Firm, Guarding, Rigid Additional comments: incisions well-coapted, clean and dry - Neurological Exam Neurological Exam: Alert, Awake, Oriented x3 - Psychiatric Exam Psychiatric exam: Normal Affect, Normal Mood Assessment and Plan - Assessment and Plan (Free Text) Assessment: 43F POD1 laparoscopic cholecystectomy Plan: Continue IV fluids Pain control Regular diet Encourage OOBTC and walking Patient clear for discharge D/C on Augmentin 875 mg BID 7 days F/U with Dr. Okeefe in office within 7-10 days D/w Dr. Maldonado Sanchez PGY1 <Henrry Morgan - Last Filed: 10/13/18 11:25> Objective - Vital Signs/Intake and Output Vital Signs (last 24 hours): Temp Pulse Resp BP Pulse Ox 97.7 F 74 18 123/78 95 10/13/18 08:17 10/13/18 08:17 10/13/18 08:17 10/13/18 08:17 10/13/18 08:17 - Medications Medications: Current Medications Hydromorphone HCl (Dilaudid) 0.5 mg IVP Q5M PRN PRN Reason: Pain, moderate (4-7) Last Admin: 10/12/18 14:10 Dose: 0.5 mg Lactated Ringer's (Lactated Ringer's) 1,000 mls @ 150 mls/hr IV .Q6H40M BERNARDO Last Admin: 10/13/18 05:04 Dose: 150 mls/hr Meperidine HCl (Demerol) 12.5 mg IVP Q5M PRN PRN Reason: Shivering/Rigor Ondansetron HCl (Zofran Inj) 4 mg IVP Q6 PRN PRN Reason: Nausea/Vomiting Oxycodone/Acetaminophen (Percocet 5/325 Mg Tab) 1 tab PO Q4 PRN PRN Reason: Pain, moderate (4-7) Stop: 10/15/18 14:31 - Labs Labs: 10/13/18 06:15 10/13/18 06:15 PT 12.5 Seconds (9.8-13.1) 10/12/18 06:00 INR 1.1 10/12/18 06:00 APTT 30.6 Seconds (25.6-37.1) 10/12/18 06:00 Assessment and Plan - Assessment and Plan (Free Text) Plan: pt seen at bedside, without any acute complaints. Pt tolerating diet, no nausea or vomiting. Afebrile, hemodynamically stable. gen: awake, alert, NAD abd: soft, obese, ND, appropriate incisional tenderness, no peritoneal signs, lap port incisions c/d/i a/p s/p laparoscopic cholecystectomy -prn pain control -low fat diet -stable for dc on PO augmentin
[2018-10-13 08:18] VITALS: BP 123/78; PULSE 74; RESP 18; TEMP 97.7; O2SAT 95
--- NOTE | 2018-10-13 10:01 | CP.PCM.DIS ---
Provider - Provider Date of Admission: 10/11/18 13:22 Attending physician: Charmaine Bettencourt MD Consults: 10/11/18 13:29 General Surgery Consult Stat Comment: Consulting Provider: Ed Okeefe Consulting Physician: Ed Okeefe Reason for Consult: cholelithiasis Time Spent in preparation of Discharge (in minutes): 15 Diagnosis - Discharge Diagnosis (1) DVT prophylaxis Status: Acute (2) Cholelithiasis Status: Acute Hospital Course - Lab Results Lab Results: Most Recent Lab Values WBC 12.1 K/uL (4.8-10.8) H 10/13/18 06:15 RBC 3.73 Mil/uL (3.80-5.20) L 10/13/18 06:15 Hgb 10.2 g/dL (12.0-16.0) L 10/13/18 06:15 Hct 31.6 % (34.0-47.0) L 10/13/18 06:15 MCV 84.8 fl (81.0-99.0) 10/13/18 06:15 MCH 27.4 pg (27.0-31.0) 10/13/18 06:15 MCHC 32.3 g/dL (33.0-37.0) L 10/13/18 06:15 RDW 14.5 % (11.5-14.5) 10/13/18 06:15 Plt Count 295 K/uL (130-400) 10/13/18 06:15 MPV 8.7 fl (7.2-11.7) 10/13/18 06:15 Neut % (Auto) 81.5 % (50.0-75.0) H 10/13/18 06:15 Lymph % (Auto) 13.6 % (20.0-40.0) L 10/13/18 06:15 [place] % (Auto) 4.6 % (0.0-10.0) 10/13/18 06:15 Eos % (Auto) 0.1 % (0.0-4.0) 10/13/18 06:15 Baso % (Auto) 0.2 % (0.0-2.0) 10/13/18 06:15 Neut # (Auto) 9.9 K/uL (1.8-7.0) H 10/13/18 06:15 Lymph # (Auto) 1.6 K/uL (1.0-4.3) 10/13/18 06:15 [place] # (Auto) 0.6 K/uL (0.0-0.8) 10/13/18 06:15 Eos # (Auto) 0.0 K/uL (0.0-0.7) 10/13/18 06:15 Baso # (Auto) 0.0 K/uL (0.0-0.2) 10/13/18 06:15 PT 12.5 Seconds (9.8-13.1) 10/12/18 06:00 INR 1.1 10/12/18 06:00 APTT 30.6 Seconds (25.6-37.1) 10/12/18 06:00 Sodium 140 mmol/l (132-148) 10/13/18 06:15 Potassium 3.8 MMOL/L (3.6-5.0) 10/13/18 06:15 Chloride 105 mmol/L (98-107) 10/13/18 06:15 Carbon Dioxide 27 mmol/L (22-30) 10/13/18 06:15 Anion Gap 12 (10-20) 10/13/18 06:15 BUN 10 mg/dl (7-17) 10/13/18 06:15 Creatinine 0.6 mg/dl (0.7-1.2) L 10/13/18 06:15 Est GFR ( Amer) > 60 10/13/18 06:15 Est GFR (Non-Af Amer) > 60 10/13/18 06:15 Random Glucose 112 mg/dL (65-105) H 10/13/18 06:15 Calcium 9.5 mg/dL (8.4-10.2) 10/13/18 06:15 Phosphorus 4.1 mg/dl (2.5-4.5) 10/13/18 06:15 Magnesium 2.2 MG/DL (1.6-2.3) 10/13/18 06:15 Total Bilirubin 0.3 mg/dl (0.2-1.3) 10/13/18 06:15 AST 19 U/L (14-36) 10/13/18 06:15 ALT 29 U/L (9-52) 10/13/18 06:15 Alkaline Phosphatase 82 U/L (38-126) 10/13/18 06:15 Total Protein 6.8 G/DL (6.3-8.2) 10/13/18 06:15 Albumin 3.5 g/dL (3.5-5.0) 10/13/18 06:15 Globulin 3.3 gm/dL (2.2-3.9) 10/13/18 06:15 Albumin/Globulin Ratio 1.1 (1.0-2.1) 10/13/18 06:15 Lipase 49 U/L (23-300) 10/11/18 06:51 Blood Type AB POSITIVE 10/12/18 06:00 Blood Type Confirm AB POSITIVE 10/12/18 07:50 Antibody Screen Negative 10/12/18 06:00 BBK History Checked No verified bt 10/12/18 06:00 - Hospital Course Hospital Course: pt admitted symptomatic cholithiasis. had lap elva yesterday. pain control, surgical consult appriciated. for dc today cleared by surgery Discharge Exam - Head Exam Head Exam: ATRAUMATIC, NORMAL INSPECTION, NORMOCEPHALIC - Eye Exam Eye Exam: EOMI, Normal appearance, PERRL Pupil Exam: NORMAL ACCOMODATION, PERRL - Respiratory Exam Respiratory Exam: Clear to PA & Lateral, NORMAL BREATHING PATTERN, UNREMARKABLE - Cardiovascular Exam Cardiovascular Exam: REGULAR RHYTHM, RRR, +S1, +S2 - GI/Abdominal Exam GI & Abdominal Exam: Normal Bowel Sounds, Soft, Unremarkable Additional comments: srgical site c/d/i - Extremities Exam Extremities exam: full ROM, normal capillary refill, normal inspection, pedal pulses present - Back Exam Back exam: FULL ROM - Neurological Exam Neurological exam: Alert, CN II-XII Intact, Normal Gait, Oriented x3, Reflexes Normal - Psychiatric Exam Psychiatric exam: Normal Affect, Normal Mood - Skin Skin Exam: Dry, Intact, Normal Color, Warm Discharge Plan - Discharge Medications Prescriptions: Amoxicillin/Clavulanate [Augmentin 875 MG-125 MG] 1 tab PO BID 7 Days #14 tab MDD 2 - Follow Up Plan Condition: FAIR Disposition: HOME/ ROUTINE Instructions: Gallstones (DC) Additional Instructions: follow up with primary MD 1 week final dx-cholelithiasis, s/p lap elva cleared by surgery, [place] po. pain control f/u rmg, rted prn, meds per med rec bw noted Referrals: Charmaine Bettencourt MD [Staff Provider] - Ed Okeefe MD [Staff Provider] -
--- NOTE | 2018-10-28 16:32 | OP ---
PROCEDURE DATE: 10/12/2018 PREOPERATIVE DIAGNOSIS: Cholecystitis. POSTOPERATIVE DIAGNOSIS: Cholecystitis. OPERATION PERFORMED: Laparoscopic cholecystectomy. SURGEON: Ed Okeefe MD. WOMEN'S ACTIVITIES ADVISER: Ced Park MD. TYPE OF ANESTHESIA: General anesthesia. OPERATIVE FINDINGS: Cystic duct, cystic artery, critical view obtained. ESTIMATED BLOOD LOSS: Minimal. PREPARATION AND PROCEDURE: The patient was taken to the operating room and placed supine on the operating room table. After induction of general anesthesia, the abdomen was prepped and draped in a standard surgical fashion. A Veress needle was inserted into the abdomen through the umbilicus. The abdomen was insufflated. Once sufficient CO2 was entered into the abdomen, a 10-mm trocar was placed through the umbilicus and a diagnostic laparoscopy was performed. The patient was then placed into the reversed Trendelenburg left side down position and the subxiphoid and two right-sided trocars were placed under direct vision. The gallbladder was grasped from the fundus and pulled upwards and the neck of the gallbladder was pulled outwards exposing the triangle of Calot. Blunt dissection with a [place] dissector was used to isolate the contents of the triangle of Calot. Once the contents of the triangle were isolated, the cystic duct was identified and seen to be entering the gallbladder. The cystic duct was then clipped and divided. The cystic artery was then encircled clipped and divided in a similar fashion. The gallbladder was then taken off the gallbladder fossa using the electrocautery. Once the gallbladder was off the gallbladder fossa, it was placed into an EndoCatch bag. The right upper quadrant was copiously irrigated. The gallbladder fossa was checked for bleeding. There was no evidence of bleeding. The irrigant was removed. The gallbladder was then removed via the umbilical trocar site. The trocars were then removed under direct vision. The umbilical trocar site was closed using #0 Vicryl. The skin incisions were closed using #4-0 Monocryl and the patient had 10 cc of 1% Marcaine infiltrated into all the wounds. The patient tolerated the procedure well. There were no complications. The sponge, instrument, and needle counts were correct at the end of the case. POSTOPERATIVE CONDITION: The patient was then awakened from general anesthesia, transported to the recovery room in satisfactory condition. Ed Okeefe MD [facility] # [id number]
== END 2018-10-13 13:37 | disposition home or self-care (01) | DRG 419 ==
LOC: H.ER 06:33 → H.ERHOLD 13:22 → H.MEDSURG1 14:47
PROVIDERS: ADMIT Family Medicine; ATTEND Family Medicine
PROC: 0FT44ZZ Resection of Gallbladder, Percutaneous Endoscopic Approach (ICD-10-PCS; principal; 2018-10-12 11:30)
DX: K80.00 Calculus of gallbladder with acute cholecystitis without obstruction (principal); K76.0 Fatty (change of) liver, not elsewhere classified; K29.70 Gastritis, unspecified, without bleeding